=== PATIENT | male | born 1965 | race Hispanic/Latino ===

== ENCOUNTER 2017-12-22 23:17 | Emergency (ER) | payer OTHER ==
[~2017-12-22 23:17] MED LIST: GABA-529 PO; GUAI118S23 PO; LEVO500T89 PO; LISI1TAB11 PO; [UNRECOGNIZED DRUG - OTHER] PO
[2017-12-23] MEDS ORDERED: ASPIRIN 325 MG TABLET ONE (00:33)
[2017-12-23] MEDS ORDERED: KETOROLAC TROMETHAMINE 30MG/ML ONE (00:33)
[2017-12-23] MEDS ORDERED: SODIUM CHLORIDE 0.9% 1000ML 1,000 ML IV ONE (00:33)
[2017-12-23 00:39] LABS: BASOPHILS % (AUTO) 0.8 % (0.0-5.0); EOSINOPHILS % (AUTO) 1.6 % (0.0-8.0); HEMATOCRIT 46.3 % (42-54); LYMPHOCYTES % (AUTO) 21.8 % (21.0-51.0); MEAN CORPUSCULAR HEMOGLOBIN 31.1 pg (27.0-33.0); MEAN CORPUSCULAR HGB CONC 34.6 g/dL (32.0-36.0); MEAN CORPUSCULAR VOLUME 89.8 fL (79-99); MONOCYTES % (AUTO) 7.9 % (3.0-13.0); NEUTROPHILS % (AUTO) 67.9 % (40.0-77.0); PLATELET COUNT (AUTO) 287 K/uL (130-400); RED BLOOD CELL COUNT(AUTO) 5.15 MIL/uL (4.50-6.20); RED CELL DISTRIBUTION WIDTH 13.9 % (11.0-15.5); WHITE BLOOD COUNT (AUTO) 10.2 K/uL (4.8-10.8)
[2017-12-23 00:52] LABS: CARBON DIOXIDE 30 mmol/L (21-32); CHLORIDE 99 mmol/L (101-111); CREATININE 1.2 mg/dL (0.5-1.5); GLOMERULAR FILTR. RATE CALC 68 mL/min (>60); GLUCOSE,RANDOM 109 mg/dL (70-105); POTASSIUM 3.5 mmol/L (3.5-5.1); SODIUM SERUM 136 mmol/L (136-145); UREA NITROGEN, BLOOD 12 mg/dL (7-18)
[2017-12-23 00:54] LABS: INR 0.96 (0.85-1.15); PARTIAL THROMBOPLASTIN TIME 29.4 SEC (26.3-35.5); PROTHROMBIN TIME 10.1 SEC (9.6-11.6)
[2017-12-23 01:10] LABS: ALANINE AMINOTRANSFERASE 95 U/L (12-78); ALBUMIN 3.8 g/dL (3.5-5.0); ASPARTATE AMINOTRANSFERASE 39 U/L (10-37); BILIRUBIN,TOTAL 0.4 mg/dL (0.2-1.0); CREATINE KINASE MB < 0.5 ng/mL (0.5-3.6); CREATINE KINASE, TOTAL 76 U/L (21-232); MYOGLOBIN 59 ng/mL (10-92); TOTAL PROTEIN, SERUM 8.5 g/dL (6.0-8.3)
== END 2017-12-23 02:05 | disposition home or self-care (01) ==
LOC: EDH 23:17
DX: R53.1 Weakness (principal); R07.9 Chest pain, unspecified; R50.9 Fever, unspecified; I10 Essential (primary) hypertension; Z98.890 Other specified postprocedural states
CPT/HCPCS: 36415; 71045; 80053; 82550; 82553; 83874; 84484; 85025; 85610; 85730; 87804 ×2; 93005; 94761; 96374; 99285; J1885; J7030

== ENCOUNTER → 2024-01-14 | Outpatient (CLI) | payer BC ==
[~2024-01-14] VITALS: Ht 185.4 cm; Wt 143.5 kg
[~2024-01-14] MED LIST changes: +BACL5TAB PO; +BUSP10TA3 PO; +GLIP5TAB15 PO; +LEVO-70 PO; +LEVO112C4 PO; -LEVO500T89 PO; -LISI1TAB11 PO; +LISI1TAB51 PO; +LOSA1TAB54 PO; +ROSU10TA28 PO
[2024-01-14 13:30] LABS: BASOPHILS # (AUTO) 0.04 K/uL (0.00-0.20); BASOPHILS % (AUTO) 0.5 % (0.0-5.0); EOSINOPHILS # (AUTO) 0.06 K/uL (0.00-0.70); EOSINOPHILS % (AUTO) 0.7 % (0.0-8.0); HEMATOCRIT 46.2 % (42-54); IMMATURE GRANULOCYTE ABSOLUTE 0.04 K/uL (0-1); LYMPHOCYTES # (AUTO) 1.5 K/uL (1.0-4.8); LYMPHOCYTES % (AUTO) 18.6 % (21.0-51.0); MEAN CORPUSCULAR HEMOGLOBIN 30.3 pg (27.0-33.0); MEAN CORPUSCULAR HGB CONC 32.9 g/dL (32.0-36.0); MONOCYTES # (AUTO) 0.5 K/uL (0.1-1.0); MONOCYTES % (AUTO) 6.1 % (3.0-13.0); NEUTROPHILS # (AUTO) 5.9 K/uL (1.8-7.7); NEUTROPHILS % (AUTO) 73.6 % (40.0-77.0); PLATELET COUNT (AUTO) 287 K/uL (130-400); RED BLOOD CELL COUNT(AUTO) 5.02 MIL/uL (4.50-6.20); RED CELL DISTRIBUTION WIDTH 13.5 % (11.0-15.5); WHITE BLOOD COUNT (AUTO) 8.1 K/uL (4.8-10.8)
[2024-01-14 13:37] LABS: POTASSIUM 3.2 mmol/L (3.5-5.1)
[2024-01-14 13:41] LABS: INR <= 0.93 (0.85-1.15); PROTHROMBIN TIME 10.5 SEC (9.6-11.6)
[2024-01-14 13:42] LABS: PARTIAL THROMBOPLASTIN TIME 31.7 SEC (26.3-35.5)
[2024-01-14 13:45] VITALS: BP 152/90; PULSE 80; RESP 16
== END | disposition home or self-care (01) ==
LOC: DAH 10:00 → EDSTATUS 01-19 12:30
PROVIDERS: ATTEND Surgery
DX: Z01.812 Encounter for preprocedural laboratory examination (principal); L72.3 Sebaceous cyst; R94.31 Abnormal electrocardiogram [ECG] [EKG]
CPT/HCPCS: 93005; 80048; 85025; 85610; 85730; 36415; A6260

== ENCOUNTER 2024-02-06 14:28 | Emergency (ER) | payer BC ==
[~2024-02-06] VITALS: Ht 182.9 cm; Wt 139.7 kg
[~2024-02-06 14:28] MED LIST changes: -GABA-529 PO; -GUAI118S23 PO; -LEVO-70 PO; -LISI1TAB51 PO; -[UNRECOGNIZED DRUG - OTHER] PO
[2024-02-06 15:13] LABS: APPEARANCE,URINE CLEAR (CLEAR); BILIRUBIN,URINE NEGATIVE (NEGATIVE); COLOR,URINE COLORLESS (YELLOW); GLUCOSE, URINE (UA) NEGATIVE (NEGATIVE); KETONES,URINE NEGATIVE (NEGATIVE); LEUKOCYTE ESTERASE ,URINE NEGATIVE Leu/uL (NEGATIVE); NITRATE,URINE NEGATIVE (NEGATIVE); OCCULT BLOOD,URINE NEGATIVE (NEGATIVE); PROTEIN,URINE NEGATIVE (NEGATIVE); UROBILINOGEN,URINE 0.2 mg/dL (0.2-1.0)
[2024-02-06 15:14] LABS: ADD UA MICROSCOPIC YES
[2024-02-06 15:17] LABS: RBC,URINE 0-1 /HPF (0-1); SQUAMOUS EPITHELIAL CELL,UR RARE /HPF (0-2); WBC,URINE 0-1 /HPF (0-1)
[2024-02-06 15:18] VITALS: BP 128/73; PULSE 74; RESP 20
[2024-02-06] MEDS: TAMSULOSIN HCL 0.4 MG CAP.ER.24H PO ONE (17:59)
[2024-02-06] MEDS: KETOROLAC 30MG VIAL (30MG/ML) IVP ONE (18:03)
[2024-02-06] MEDS: 0.9%NACL 1000ML 1,000 ML IV ONE (18:04)
[2024-02-06] MEDS: FAMOTIDINE 20MG VIAL IV ONE (18:04)
[2024-02-06] MEDS: METOCLOPRAMIDE 10 MG/2 ML VIAL IVP ONE (18:04)
[2024-02-06] MEDS ORDERED: TAMS-1 PO (18:57)
[2024-02-06] MEDS ORDERED: FAMO-136 PO (18:57)
[2024-02-06] MEDS ORDERED: KETO10 PO (18:57)
[2024-02-06] MEDS ORDERED: ACET-2079 PO (18:57)
[2024-02-06] MEDS ORDERED: METO-296 PO (18:57)
== END 2024-02-06 19:15 | disposition home or self-care (01) ==
LOC: EDH 14:28
DX: N20.0 Calculus of kidney (principal); Z79.84 Long term (current) use of oral hypoglycemic drugs; Z79.890 Hormone replacement therapy; Z79.899 Other long term (current) drug therapy
CPT/HCPCS: 99284; 74176; 96374; 96375; 96361; 81001; J3490; J7030; J1885; J2765